=== PATIENT | male | born 1940 | race Caucasian/White ===

== ENCOUNTER 2019-08-03 13:13 | Emergency (ER) | payer MEDICARE, SELFPAY ==
[2019-08-03 13:14] VITALS: BP 156/104; PULSE 74; RESP 18; TEMP 36.6; O2SAT 96; BMI 29.5
--- NOTE | 2019-08-03 13:32 | RAD_ITS ---
STUDY: X-RAY CHEST REASON FOR EXAM: Male, 78 years old. Weakness. TECHNIQUE: Single AP portable view of the chest. COMPARISON: None. FINDINGS: A right-sided PICC line catheter is present. The tip is at the junction of the superior vena cava and right atrium. The lungs are clear and expanded. There is no demonstrated pleural abnormality. Normal size heart. Normal mediastinum and mino. Normal visualized pulmonary arteries. There is atherosclerotic calcification of the aortic arch with tortuosity. There are diffuse degenerative changes of the visualized thoracic spine. Normal visualized ribs, clavicles, and shoulders. There is no demonstrated abnormality of the visualized soft tissue structures of the upper abdomen. RAD/Chest 1 View (Portable) IMPRESSION: No acute abnormality is seen. Electronically Signed: Newton Davison, at 14:12 EDT , Service support ,
--- NOTE | 2019-08-03 13:32 | CT_ITS ---
STUDY: CT BRAIN WITHOUT CONTRAST REASON FOR EXAM: Male, 78 years old. History of brain cancer. Difficulty with ambulation. RADIATION DOSAGE (If Supplied By Facility): CTDIvol = ( 60.81 ) mGy, DLP = ( 1135.50 ) mGycm TECHNIQUE: Transaxial CT imaging of the brain was performed without administration of intravenous contrast material. Individualized dose optimization techniques were used for this CT. COMPARISON: No relevant priors. FINDINGS: Normal soft tissue structures. Normal calvarium. There is compression of the right lateral ventricle with the shift of the midline from right to left of 6.8 mm. There is a 5.3 cm x 4.2 cm rounded hyper attenuated mass involving the right temporal frontal parietal lobe with significant surrounding white matter edema. Normal basal ganglia and thalami. Normal brainstem. Normal cerebellum. There is no intracranial hemorrhage. There are no findings of an acute ischemic infarction. Atherosclerotic calcification of the cavernous portions of the internal carotid arteries bilaterally. Normal visualized paranasal sinuses. CT/Brain/Head without Contrast IMPRESSION: Large mass of increased attenuation in the right temporal parietal frontal lobes with significant mass effect and edema as described. Shift of the midline from right to left of 6.8 mm. Electronically Signed: Newton Davison, at 15:06 EDT , Service support ,
--- NOTE | 2019-08-03 13:33 | EKG12_ITS ---
Test Reason : WEAKNESS Blood Pressure : / mmHG Vent. Rate : 069 BPM Atrial Rate : 069 BPM P-R Int : 174 ms QRS Dur : 086 ms QT Int : 380 ms P-R-T Axes : 021 038 020 degrees QTc Int : 407 ms Normal sinus rhythm Inferior infarct , age undetermined Abnormal ECG Confirmed by ELISEO SIMS, BRITTNI ([id number]), editor trade journal TATY OVALLE ([id number]) on 08/06/2019 10:54:16 AM Referred By: CARLIE Confirmed By:BRITTNI GOMES MD
--- NOTE | 2019-08-03 13:48 | NURSING ---
NO OLD EKGS
--- NOTE | 2019-08-03 14:22 | ED.DCSUM_ITS ---
- ER Visit Summary Date of Service: 08/03/19 Chief Complaint: [Weakness] History of Present Illness: The patient is a 78 M [present to the emergency department feeling generally weak over the last 2 days. Patient currently being treated for a brain tumor by Dr. Natalio Arteaga. Patient denies any fever. [employer]'s last OpTiva dose was June 29] patient denies any chest pain or shortness of breath. Patient now unable to bear weight or ambulate. Patient was noted to have a left lower extremity that was weaker than the right since yesterday morning. Family also thought that the left leg was cooler to the touch when compared to the right. Patient also has had gamma knife therapy for his brain tumor. Patient has no other medical history. Patient had been on dexamethasone but apparently his steroid was decreased and family thinks symptoms have worsened since that happened. Physical Examination: [HEENT-PERRLA, EOMI. Cranial nerves II through XII grossly intact. TMs clear. Mucous membranes moist. No adenopathy. Cardiovascular-regular rate and rhythm without murmur or ectopy Lungs-clear to auscultation, chest wall stable without crepitus or subcu emphysema Abdomen-normoactive bowel sounds, soft, nontender, no rebound or rigidity, no peritoneal signs. Neuro exam-patient appears to have left upper extremity and left lower extremity weakness compared to the right side. Appears to be a mild left-sided facial droop. Patient has normal sensation. Extremities-intact ?4, normal range of motion, normal pulses, atraumatic] Test Results: [CBC with differential obtained for white count 13.5, hemoglobin 17.9, hematocrit 53, placed 212. Chemistries unremarkable. BUN was 25 and creatinine 1.26. Troponin is less than 0.015. EKG obtained arrival shows sinus rhythm with a ventricular rate of 69 bpm with old inferior infarct noted. CT scan of the brain showed a large mass right temporal parietal frontal with edema and midline shift of 6.8 mm.] Emergency Department Course and Treatment: [Patient case was discussed with Dr. Natalio Arteaga who asked that we give patient IV Decadron and transferred to tertiary care center where his neurosurgeon can evaluate him.] Treatment Plan: [Transfer to [facility].] Disposition: [Transfer] Impression: [Brain mass with edema and midline shift Weakness] This note was generated with [employer] dictation software. It may contain incorrect words, spelling, and punctuation that were not noted in review of the chart prior to signing <Landon Richards - Last Filed: 08/03/19 15:28> - ER Visit Summary While awaiting transfer, Shilrey velasquez called back for update. Neuro ICU requests that the patient is given 300 cc bolus of 3% normal saline over 2 hours. This is ordered. Patient remains hemodynamically stable and will be transferred to [facility]. This note was generated with [employer] dictation software. It may contain incorrect words, spelling, and punctuation that were not noted in review of the chart prior to signing <Theresa Ramirez - Last Filed: 08/03/19 16:34> ED Disposition <Landon Richards - Last Filed: 08/03/19 15:28> <Theresa Ramirez - Last Filed: 08/03/19 16:34> - Plan for ED Patient: Referrals: Omer Montes MD [Primary Care Provider] -
[2019-08-03 14:28] LABS: Absolute Lymphocyte Count 0.82 X10^3/uL (0.83-4.51); Absolute Neutrophil Count 11.6 X10^3/uL (2.0-7.7); Basophil# 0.03 X10^3/uL; Basophil% 0.2 % (0-1); Eosinophil# 0.05 X10^3/uL; Eosinophils% 0.4 % (0-5); Hematocrit 53.4 % (40-54); Hemoglobin 17.9 g/dL (13.0-16.5); Lymphocyte # 0.82 X10^3/ul (4.0); Lymphocyte % 6.1 % (19-41); Mean Corp Hgb Conc 33.5 g/dL (32-36); Mean Corpuscular Hgb 28.9 pg (27.0-32.0); Mean Corpuscular Volume 86.1 fL (80-94); Mean Platelet Vol. 9.5 fl (6.2-12.0); Monocyte# 0.87 X10^3/uL; Monocyte% 6.5 % (0-10); NRBC Flagged by Analyzer 0 % (0-5); Neutrophil # 11.63 X10^3/uL (2.7-7.7); Neutrophil % 86.2 % (47-70); Platelet Count 212 K/mm3 (150-450); RBC Distribution Width CV 14.1 % (11.6-14.6); RBC Distribution Width SD 43.6 fl (35.1-43.9); White Blood Count 13.5 K/mm3 (4.4-11.0)
[2019-08-03 14:41] VITALS: BP 145/90; PULSE 58; RESP 13; O2SAT 95
[2019-08-03] MEDS: 0.9% Normal Saline 1,000 ML 150 ML IV (14:45)
[2019-08-03 14:46] LABS: Anion Gap 6 (5-15); BUN 25 mg/dL (7-18); BUN/Creat Ratio 19.8 RATIO (10-20); Calcium,Total 9.3 mg/dL (8.5-10.1); Chloride 98 mmol/L (98-107); Creatinine, Serum 1.26 mg/dL (0.70-1.30); EST Glomerular Filtration Rate 59 mL/min (>60); Est Glom Filt Rate - Afr Amer 71 mL/min (>60); Estimated Creatinine Clearance 49.88 ml/min; Glucose 116 mg/dL (74-106); Potassium 3.9 mmol/L (3.5-5.1); Sodium Level 134 mmol/L (136-145)
[2019-08-03] MEDS: dexAMETHasone 4 MG/ML Vial 2 MG IV (15:26)
--- NOTE | 2019-08-03 15:33 | NURSING ---
CALLED [facility], TALKED TO HERMAN. BEDS TIGHT
[2019-08-03] MEDS: dexAMETHasone 4 MG/ML Vial 8 MG IV (15:37)
--- NOTE | 2019-08-03 15:47 | NURSING ---
DR PRATEEK SEXTON
[2019-08-03 16:04] VITALS: BP 144/85; PULSE 59; RESP 16; O2SAT 96
[2019-08-03] MEDS: Sodium Chloride 3% 300 ML 150 ML IV (17:16)
[2019-08-03 17:18] VITALS: BP 140/90; PULSE 59; RESP 17; O2SAT 97
--- NOTE | 2019-08-03 17:23 | ED.RN ---
PT USED URINAL. URINE NOT OBTAINED. OT BEING TRANSFERED/ADMITTED. URINE NOT PRIORITY AT THIS TIME PER
--- NOTE | 2019-08-03 17:32 | NURSING ---
[facility] ROOM [id number] NURSE TO NURSE [phone]
--- NOTE | 2019-08-03 17:47 | NURSING ---
108 TERELETSKY ENCEPHALOPATHY, UTI, ELDA, SHINGLES
[2019-08-03 17:50] VITALS: BP 142/89; PULSE 61; RESP 13; TEMP 36.6; O2SAT 99
--- NOTE | 2019-08-03 18:23 | ED.RN ---
FLUIDS CONTINUED ON TRANSFER
== END 2019-08-03 18:23 | disposition short-term general hospital (02) ==
LOC: ED 13:52
PROVIDERS: Emergency Provider Emergency Medicine; Family Provider Family Medicine; PCP Family Medicine
DX: G93.9 Disorder of brain, unspecified (principal); R53.1 Weakness; R29.810 Facial weakness
CPT/HCPCS: 70450; 71045; 80048; 84484; 85025; 93005; 96361; 96374; 99285